=== PATIENT | male | born 1940 | race Caucasian/White ===

== ENCOUNTER 2023-12-16 10:49 | Day surgery (SDC) | payer MEDICARE, BC ==
[~2023-12-16] VITALS: Ht 177.8 cm; Wt 104.8 kg
[~2023-12-16 10:49] MED LIST: ALLO100T PO; B-12100010 PO; BAYE81TA10 PO; BUDE10.7 INH; DICL100G10 TOP; FINA5TAB2 PO; FLUTISP; LOSA100T46 PO; NEBI10TA PO; NITR0.4S14 SL; OMEP-173 PO; PHENYLEPHRINE 10% OPHTH SOL 5ML OD PRN; ROSU10TA61 PO; STOO100C30 PO; VENTAER INH; VITA500075 PO
[2023-12-16] MEDS ORDERED: fentaNYL 100 MCG/2 ML INJECTION As Ordered ONE (11:42)
[2023-12-16] MEDS: ATROPINE SULFATE 1% OPHTH SOLN 2ML BTL OD SCH (12:00)
[2023-12-16] MEDS: PHENYLEPHRINE 2.5% OPHTH SOL 2ML OD SCH (12:00)
[2023-12-16] MEDS: LIDOCAINE 3.5 % 1ML OPHTH TOPICAL GEL OU ONE (12:00)
[2023-12-16] MEDS: TROPICAMIDE 1% OPHTH SOLN 15ML OD SCH (12:00)
[2023-12-16] MEDS: OFLOXACIN 0.3 % (OCUFLOX) OPTH SOL 5ML OD ONE (12:00)
[2023-12-16] MEDS: CEFUROXIME 1MG/0.1ML INTRACAMERAL INJ As Ordered ONE (12:19)
[2023-12-16] MEDS: BSS IRRIG/VANCO(10MG)/TOBRA(5MG)/EPINEPH(1:1000-0.5CC)500ML BAG-ORONLY As Ordered ONE (12:19)
[2023-12-16] MEDS: LIDOCAINE 1% SDV 5ML VIAL As Ordered ONE (12:19)
[2023-12-16] MEDS ORDERED: hydrALAZINE 20MG/ML 1ML VIAL As Ordered ONE (12:20)
[2023-12-16] MEDS ORDERED: ONDANSETRON 4MG 2ML VIAL IV PRN (12:30)
[2023-12-16] MEDS ORDERED: hydrALAZINE 20MG/ML 1ML VIAL IV PRN (12:30)
[2023-12-16 13:04] VITALS: BP 188/81; TEMP 98.6; O2SAT 97
== END 2023-12-16 13:22 | disposition home or self-care (01) ==
LOC: M SDC 10:49
PROVIDERS: ATTEND Ophthalmology
DX: H25.11 Age-related nuclear cataract, right eye (principal); H57.03 Miosis; I10 Essential (primary) hypertension; E78.00 Pure hypercholesterolemia, unspecified; J44.9 Chronic obstructive pulmonary disease, unspecified; Z79.51 Long term (current) use of inhaled steroids; Z79.899 Other long term (current) drug therapy; Z79.82 Long term (current) use of aspirin; F17.220 Nicotine dependence, chewing tobacco, uncomplicated; M10.9 Gout, unspecified; Z95.1 Presence of aortocoronary bypass graft; K21.9 Gastro-esophageal reflux disease without esophagitis; Z85.51 Personal history of malignant neoplasm of bladder; Z87.19 Personal history of other diseases of the digestive system
CPT/HCPCS: 66982; J0360; J0697; J3010; V2632

== ENCOUNTER → 2025-02-13 | Outpatient (REF) ==
[~2025-02-13] MED LIST changes: -NEBI10TA PO; +NEBI10TA2 PO; -PHENYLEPHRINE 10% OPHTH SOL 5ML OD PRN
== END ==
LOC: M LABCFH 13:45
DX: N39.0 Urinary tract infection, site not specified (principal)